=== PATIENT | male | born 1975 ===

== ENCOUNTER 2024-12-01 06:28 | Day surgery (SDC) | payer OTHER, SELFPAY | END 2024-12-01 11:51 | disposition home or self-care (01) | LOC: GI 06:28 | PROVIDERS: ATTENDING PHYSICIAN Internal Medicine Gastroenterology | DX: K57.30 Diverticulosis of large intestine without perforation or abscess without bleeding (principal); Q43.8 Other specified congenital malformations of intestine; K64.8 Other hemorrhoids | CPT/HCPCS: 45378 ==